=== PATIENT | male | born 1945 | race Two or more races ===

== ENCOUNTER 2024-09-17 10:14 | Emergency (ER) | payer OTHER ==
[~2024-09-17] VITALS: Ht 167.6 cm; Wt 79.4 kg
[2024-09-17] MEDS ORDERED: EZETIMIBE-SIMV1 EAC1 PO (11:05)
[2024-09-17] MEDS ORDERED: SERTRALINE HCL50 MG PO (11:06)
[2024-09-17] MEDS ORDERED: FOLIC ACID1 MG PO (11:06)
[2024-09-17] MEDS ORDERED: LOSARTAN POTAS100 MG PO (11:06)
[2024-09-17] MEDS ORDERED: HYDROCHLOROTH12.5 M2 PO (11:06)
[2024-09-17] MEDS ORDERED: MONTELUKAST SOD10 MG PO (11:06)
[2024-09-17] MEDS ORDERED: MEMANTINE HCL10 MG PO (11:06)
[2024-09-17] MEDS ORDERED: 0.9 % SODIUM CHLORIDE 1,000 ML IV ONE (11:30)
[2024-09-17] MEDS ORDERED: KETOROLAC TROMETHAMINE 30 MG VIAL IV ONE (11:30)
[2024-09-17] MEDS ORDERED: FAMOtidine 10 MG/ML (4ML VIAL) IV ONE (11:30)
[2024-09-17] MEDS ORDERED: KETOROLAC TROMETHAMINE 30 MG VIAL ONE (12:15)
[2024-09-17] MEDS ORDERED: FAMOTIDINE/PF 20 MG/2 ML VIAL ONE (12:16)
[2024-09-17 12:59] LABS: BASO % 0.6 % (0.1-1.2); EOS # 0.07 (0.04-0.54); EOS % 0.8 % (0.7-7.0); HEMOGLOBIN 13.9 g/dL (13.7-17.5); LYMPH # 1.67 (1.18-3.74); LYMPH % 18.9 % (19.3-53.1); MEAN CORPUSCULAR HEMOGLOBIN 32.2 pg (25.6-32.2); MONO # 0.84 (0.24-0.82); MONO % 9.5 % (4.7-12.5); PLATELET COUNT 347 K/uL (163-369); RED BLOOD COUNT 4.32 M/uL (4.63-6.08); RED CELL DISTRIBUTION WIDTH 12.5 % (11.6-14.4)
[2024-09-17 13:18] LABS: INR 0.99; PARTIAL THROMBOPLASTIN TIME 26.8 SECONDS (22.0-34.0); PROTHROMBIN TIME 10.8 SECONDS (9.0-11.5)
[2024-09-17 13:22] LABS: ALBUMIN 3.7 gm/dL (3.4-5.0); BILIRUBIN TOTAL 0.57 mg/dL (0.3-1.2); CALCIUM 9.6 mg/dL (8.5-10.1); CREATININE SERUM 1.32 mg/dL (0.70-1.30); GFR 52.32; GLOBULINA 3.9 G/DL (2.4-3.5); POTASSIUM 4.14 mEq/L (3.5-5.1); TOTAL PROTEIN 7.6 gm/dL (6.4-8.2)
[2024-09-17 14:55] LABS: PH,URINE 5.5 (5.0-8.0); URINE APPEARANCE Clear; URINE BILIRRUBIN Negative (NEGATIVE); URINE BLOOD Negative; URINE COLOR Yellow; URINE GLUCOSE Negative (NEGATIVE); URINE KETONE Trace (NEGATIVE); URINE LEUKOCYTE Negative; URINE NITRATE Negative; URINE PROTEIN Negative (NEGATIVE); URINE UROBILINOGEN 0.2 E.U./dl
[2024-09-17 14:59] LABS: URINE BACTERIA 7.3 uL (0.0-1933); URINE CAST 3.68 uL (0.0-1.40); URINE EPITHELIAL CELLS 6.6 uL (0.0-38.8); URINE RBC 3.9 uL (0.0-20.8); URINE WBC 5.2 uL (0.0-23.2)
[2024-09-17] MEDS ORDERED: PEPCID AC20 MG PO (15:01)
[2024-09-17] MEDS ORDERED: CIPRO500 MG PO (15:01)
[2024-09-17] MEDS ORDERED: PROBIOTIC1 EAC2 PO (15:02)
[2024-09-17] MEDS ORDERED: METRONIDAZOLE500 MG PO (15:02)
[2024-09-17] MEDS ORDERED: LEVSIN/SL0.125 MG SL (15:02)
== END 2024-09-17 15:17 | disposition home or self-care (01) ==
LOC: ER 10:14
PROVIDERS: General Practice
DX: R10.31 Right lower quadrant pain (principal); R10.9 Unspecified abdominal pain; I10 Essential (primary) hypertension
CPT/HCPCS: 36415; 74177; 96365; 96366; 99284; J1885; J3490; J7030; Q9965